=== PATIENT | female | born 1980 | race Caucasian/White ===

== ENCOUNTER 2018-05-26 09:46 | Emergency (ER) | payer OTHER ==
[~2018-05-26] VITALS: Ht 162.6 cm; Wt 72.6 kg
--- NOTE | 2018-05-26 09:46 | NUR ---
[facility]
--- NOTE | 2018-05-26 09:50 | NUR ---
patient arrived via BLS from work with c/o dizziness x this morning. patient states this happens sometimes when she has a EDWARDS. patient denies any pain, KO, no head trauma, N/V/D or taking anything aside from 1 tylenol before arrival. patients sister is in the waiting room.
[2018-05-26 09:51] VITALS: BP_SYST 151
--- NOTE | 2018-05-26 10:20 | NUR ---
ER at bedside examining patient.
[2018-05-26] MEDS ORDERED: NACL 0.9% 1,000 ML IV ONE (10:30)
[2018-05-26 10:54] LABS: BASOPHILS % (AUTO) 0.6 % (0.0-2.0); EOSINOPHILS # (AUTO) 0.1 K/uL (0.0-0.4); EOSINOPHILS % (AUTO) 1.4 % (0.0-4.0); HEMATOCRIT 44.7 % (36-48); LYMPHOCYTES # (AUTO) 1.4 K/uL (1.0-5.5); LYMPHOCYTES % (AUTO) 26.4 % (20.5-51.5); MEAN CORPUSCULAR HEMOGLOBIN 31 pg (27-31); MEAN CORPUSCULAR HGB CONC 34 % (32-36); MEAN CORPUSCULAR VOLUME 92 fL (79.0-98.0); MONOCYTES # (AUTO) 0.5 K/uL (0.0-1.0); NEUTROPHILS # (AUTO) 3.2 K/uL (1.8-7.7); NEUTROPHILS % (AUTO) 62.6 % (40.0-70.0); PLATELET COUNT (AUTO) 198 K/uL (130-430); RED BLOOD CELL COUNT(AUTO) 4.88 MIL/uL (4.2-6.2); RED CELL DISTRIBUTION WIDTH 12.4 % (9.0-15.0); WHITE BLOOD COUNT (AUTO) 5.2 K/uL (4.8-10.8)
[2018-05-26 11:00] LABS: CALCIUM 9.7 mg/dL (8.4-11.0); CREATININE 0.76 mg/dL (0.55-1.30); POTASSIUM 3.7 mmol/L (3.5-5.1)
[2018-05-26 11:05] LABS: TOTAL BILIRUBIN 0.7 mg/dL (0.0-1.0)
[2018-05-26 11:45] VITALS: BP_SYST 151
--- NOTE | 2018-05-26 11:45 | NUR ---
Patient given written and verbal discharge instructions and verbalizes understanding. ER MD discussed with patient the results and treatment provided. Patient in stable condition. ID arm band removed. IV catheter removed intact and dressing applied, no active bleeding. Rx of Meclizine Hydrochloride given. Patient educated on pain management and to follow up with PMD. Pain Scale 0/10. Opportunity for questions provided and answered. Medication side effect fact sheet provided.
== END 2018-05-26 11:45 | disposition home or self-care (01) ==
LOC: SED 09:46
DX: R42 Dizziness and giddiness (principal); G43.909 Migraine, unspecified, not intractable, without status migrainosus; R03.0 Elevated blood-pressure reading, without diagnosis of hypertension; Z88.1 Allergy status to other antibiotic agents
CPT/HCPCS: 36415; 70450; 80053; 81025; 85025; 93005; 96360; 99284; J7030